=== PATIENT | female | born 1995 | race Caucasian/White ===

== ENCOUNTER 2019-06-02 13:47 | Emergency (ER) | payer OTHER ==
[~2019-06-02] VITALS: Ht 154.9 cm; Wt 52.2 kg
[2019-06-02 13:52] VITALS: BP 131/88
[2019-06-02 16:05] VITALS: BP 122/82
== END 2019-06-02 16:05 | disposition home or self-care (01) ==
LOC: MED 13:47
DX: R55 Syncope and collapse (principal); R42 Dizziness and giddiness; Z86.69 Personal history of other diseases of the nervous system and sense organs
CPT/HCPCS: 81002; 81025; 82948; 93005; 99283